=== PATIENT | female | born 2000 | race American Indian/Alaskan Native ===

== ENCOUNTER 2019-08-09 20:54 | Emergency (ER) | payer OTHER ==
--- NOTE | 2019-08-09 21:57 | Emergency Department Report ---
Blank Doc - Documentation Documentation: 19-year-old female that presents with abdominal pain with n/v. This initial assessment/diagnostic orders/clinical plan/treatment(s) is/are subject to change based on patient's health status, clinical progression and re- assessment by fellow clinical providers in the ED. Further treatment and workup at subsequent clinical providers discretion. Patient/guardians urged not to elope from the ED as their condition may be serious if not clinically assessed and managed. Initial orders include: 1- Patient sent to [facility] for further evaluation and treatment 2- labs 3- UA
[2019-08-09 22:23] LABS: Basophils # (Auto) 0.1 K/mm3 (0.0-0.1); Basophils % (Auto) 0.7 % (0.0-1.8); Eosinophils # (Auto) 0.1 K/mm3 (0.0-0.4); Eosinophils % (Auto) 0.8 % (0.0-4.3); Hematocrit 39.5 % (30.3-42.9); Hemoglobin 12.7 gm/dl (10.1-14.3); Lymphocytes % (Auto) 29.6 % (13.4-35.0); Mean Corpuscular HGB Conc 32 % (30-34); Mean Corpuscular Volume 88 fl (79-97); Monocytes # (Auto) 0.6 K/mm3 (0.0-0.8); Monocytes % (Auto) 5.7 % (0.0-7.3); Platelet Count 368 K/mm3 (140-440); Red Blood Count 4.48 M/mm3 (3.65-5.03); Red Cell Distribution Width 12.8 % (13.2-15.2)
[2019-08-09 22:40] LABS: Bacteria,Urine 1+ /HPF (Negative); Bilirubin,Urine NEG (Negative); Blood,Urine LG (Negative); Color,Urine Yellow (Yellow); Protein,Urine <15 mg/dL mg/dL (Negative); Urobilinogen,Urine < 2.0 mg/dL (<2.0)
[2019-08-09 22:41] LABS: Alanine Aminotransferase 16 units/L (7-56); Albumin 4.4 g/dL (3.9-5); BUN/Creatinine Ratio 15; Blood Urea Nitrogen 9 mg/dL (7-17); Hemolysis Index 66
[2019-08-09] MEDS ORDERED: ONDANSETRON 4 MG/2 ML INJ IV ONE (23:59)
[2019-08-09] MEDS ORDERED: FAMOTIDINE 20 MG/2 ML INJ IV ONE (23:59)
[2019-08-09] MEDS ORDERED: KETOROLAC 30 MG/1 ML INJ IV ONE (23:59)
[2019-08-10] MEDS ORDERED: SODIUM CHLORIDE 0.9% 1000 ML 1,000 ML IV ONE
[2019-08-10] MEDS ORDERED: ONDANSETRON 4 MG ODT TAB PO ONE (00:14)
[2019-08-10] MEDS ORDERED: DICYCLOMINE 20 MG TAB PO ONE (00:14)
[2019-08-10] MEDS ORDERED: FAMOTIDINE 20 MG TAB PO ONE (00:14)
[2019-08-10] MEDS ORDERED: BUTALB/ACETAMINOPHEN/CAFFEINE TAB PO ONE (00:14)
--- NOTE | 2019-08-10 00:19 | Emergency Department Report ---
ED N/V/D HPI - General Chief complaint: Abdominal Pain Stated complaint: PRESSURE IN HEAD NAUSEA ABD PAIN Time Seen by Provider: 08/09/19 21:57 Source: patient Mode of arrival: Ambulatory Limitations: No Limitations - History of Present Illness Initial comments: Patient is a nulliparous 19-year-old -[place] female with no past medical history who presents to the ED with complaint of acute onset persistent diffuse abdominal pain, nausea, vomiting and headache for the last 4 days. Patient denies dizziness, syncope, chest pain, shortness of breath, fever, chills, cough, dysuria, diarrhea, sore throat, nasal and sinus congestion, change in vision or vaginal bleeding and vaginal discharge. MD complaint: nausea, vomiting, abdominal pain, other (headache) -: Sudden, days(s) (4) Description of Vomiting: food contents, watery Associated Abdominal Pain: Yes (diffuse) Location: diffuse Radiation: none Severity: moderate Pain Scale: 5 Quality: cramping, aching Consistency: intermittent Improves with: none Worsens with: none Context: possible food poisoning Associated Symptoms: denies other symptoms, headaches, loss of appetite, malaise, nausea/vomiting. denies: myalgias, chest pain, cough, diaphoresis, fever/chills, rash, dysuria, shortness of breath, syncope, weakness, other - Related Data Previous Rx's Medication Instructions Recorded Last Taken Type Butalb/Acetamin/Caff 50-325-40 1 tab PO Q6HR PRN #15 tab 08/10/19 Unknown Rx [Fioricet 50-325-40] Dicyclomine [Bentyl] 20 mg PO Q6H PRN #24 tablet 08/10/19 Unknown Rx Famotidine [Pepcid] 20 mg PO Q12H #30 tablet 08/10/19 Unknown Rx Ondansetron [Zofran Odt] 4 mg PO Q6HR PRN #20 tab.rapdis 08/10/19 Unknown Rx Allergies Allergy/AdvReac Type Severity Reaction Status Date / Time No Known Allergies Allergy Unverified 06/01/19 07:57 ED Review of Systems ROS: Stated complaint: PRESSURE IN HEAD NAUSEA ABD PAIN Other details as noted in HPI Constitutional: denies: chills, fever Eyes: denies: eye pain, eye discharge, vision change ENT: denies: ear pain, throat pain Respiratory: denies: cough, shortness of breath, wheezing Cardiovascular: denies: chest pain, palpitations Endocrine: no symptoms reported Gastrointestinal: abdominal pain, nausea, vomiting. denies: diarrhea Genitourinary: denies: urgency, dysuria, discharge Musculoskeletal: denies: back pain, joint swelling, arthralgia Skin: denies: rash, lesions Neurological: headache. denies: weakness, paresthesias Psychiatric: denies: anxiety, depression Hematological/Lymphatic: denies: easy bleeding, easy bruising ED Past Medical Hx - Past Medical History Previous Medical History?: No - Surgical History Past Surgical History?: No - Social History Smoking Status: Never Smoker Substance Use Type: None, Marijuana - Medications Home Medications: Home Medications Medication Instructions Recorded Confirmed Last Taken Type Butalb/Acetamin/Caff 50-325-40 1 tab PO Q6HR PRN #15 tab 08/10/19 Unknown Rx [Fioricet 50-325-40] Dicyclomine [Bentyl] 20 mg PO Q6H PRN #24 tablet 08/10/19 Unknown Rx Famotidine [Pepcid] 20 mg PO Q12H #30 tablet 08/10/19 Unknown Rx Ondansetron [Zofran Odt] 4 mg PO Q6HR PRN #20 tab.rapdis 08/10/19 Unknown Rx ED Physical Exam - General Limitations: No Limitations General appearance: alert, in no apparent distress - Head Head exam: Present: atraumatic, normocephalic, normal inspection - Eye Eye exam: Present: normal appearance, PERRL, EOMI Pupils: Present: normal accommodation - ENT ENT exam: Present: normal exam, normal orophraynx, mucous membranes moist, TM's normal bilaterally, normal external ear exam - Neck Neck exam: Present: normal inspection, full ROM - Respiratory Respiratory exam: Present: normal lung sounds bilaterally. Absent: respiratory distress, wheezes, rales, chest wall tenderness - Cardiovascular Cardiovascular Exam: Present: regular rate, normal rhythm, normal heart sounds. Absent: systolic murmur, diastolic murmur, rubs, gallop - GI/Abdominal GI/Abdominal exam: Present: soft, normal bowel sounds. Absent: tenderness, gua rding, hyperactive bowel sounds - Extremities Exam Extremities exam: Present: normal inspection, full ROM, normal capillary refill - Back Exam Back exam: Present: normal inspection, full ROM. Absent: tenderness, CVA tende rness (R), CVA tenderness (L), muscle spasm, paraspinal tenderness, vertebral tenderness - Neurological Exam Neurological exam: Present: alert, oriented X3, CN II-XII intact, normal gait, reflexes normal - Psychiatric Psychiatric exam: Present: normal affect, normal mood - Skin Skin exam: Present: warm, dry, intact, normal color. Absent: rash ED Course Vital Signs 08/09/19 21:13 Temperature 97.9 F Pulse Rate 83 Respiratory 12 Rate Blood Pressure 127/82 O2 Sat by Pulse 100 Oximetry ED Medical Decision Making - Lab Data Result diagrams: 08/09/19 22:00 08/09/19 22:00 - Medical Decision Making This is a nulliparous 19-year-old -[place] female who presented to the ED with acute onset persistent nausea, vomiting, diffuse abdominal pain and headache for 4 days. In the ED, patient is alert and oriented x3 and is not in any distress with normal vital signs. Lab test results were reviewed and are all nonactionable. Patient was treated for nausea and vomiting and pain, and on reevaluation, patient felt better and and requested to be discharged home on medications. Patient was discharged home on medications and advised to follow- up with her primary care physician in 5 to 7 days for reevaluation or return to the ED immediately if symptoms get worse. - Differential Diagnosis Viral gastroenteritis; Dehydration; GERD Critical care attestation.: If time is entered above; I have spent that time in minutes in the direct care of this critically ill patient, excluding procedure time. ED Disposition Clinical Impression: Viral gastroenteritis, Nausea and vomiting in adult Tension type headache Qualifiers: Headache chronicity pattern: acute headache Intractability: not intractable Qualified Code(s): G44.209 - Tension-type headache, unspecified, not intractable Disposition: DC-01 TO HOME OR SELFCARE Is pt being admited?: No Does the pt Need Aspirin: No Condition: Stable Instructions: Abdominal Pain (ED), Acute Nausea and Vomiting (ED), Gastroenteritis (ED) Additional Instructions: Your lab test results are unremarkable and your symptoms are likely due to a viral syndrome. Therefore maintain a clear liquid diet for 12 to 24 hours, take medication as advised drink plenty of fluids. Follow-up with your primary care physician in 7 to 10 days for reevaluation or return to the ED immediately if symptoms get worse. Prescriptions: Dicyclomine [Bentyl] 20 mg PO Q6H PRN #24 tablet PRN Reason: Abdominal pain Butalb/Acetamin/Caff 50-325-40 [Fioricet 50-325-40] 1 tab PO Q6HR PRN #15 tab PRN Reason: Headache Famotidine [Pepcid] 20 mg PO Q12H #30 tablet Ondansetron [Zofran Odt] 4 mg PO Q6HR PRN #20 tab.rapdis PRN Reason: Nausea Referrals: MIKE FIERRO [Other] - 3-5 Days Forms: Work/School Release Form(ED) Time of Disposition: 00:16 Print Language: MAURITIAN
[2019-08-10 00:35] VITALS: BP 120/74
== END 2019-08-10 00:37 | disposition home or self-care (01) ==
LOC: ED 20:54
DX: A08.4 Viral intestinal infection, unspecified (principal); G44.209 Tension-type headache, unspecified, not intractable; F12.10 Cannabis abuse, uncomplicated; Z79.899 Other long term (current) drug therapy
CPT/HCPCS: 36415; 80053; 81001; 83690; 84703; 85025; Q0162

== ENCOUNTER 2020-02-04 18:51 | Outpatient (CLI) | payer OTHER ==
[2020-02-04 19:23] VITALS: BP 115/71
[2020-02-04] MEDS ORDERED: LACTATED RINGERS 1,000 ML ONE (19:37)
[2020-02-04 19:45] LABS: Bacteria,Urine 1+ /HPF (Negative); Bilirubin,Urine NEG (Negative); Blood,Urine NEG (Negative); Color,Urine Yellow (Yellow); Mucus,Urine FEW /HPF; Protein,Urine <15 mg/dL mg/dL (Negative); Urobilinogen,Urine < 2.0 mg/dL (<2.0)
[2020-02-04] MEDS ORDERED: LACTATED RINGERS 1,000 ML IV ONE ×2 (19:46→22:13)
[2020-02-04] MEDS ORDERED: ACETAMINOPHEN 325 MG TAB PO ONE (20:00)
[2020-02-04] MEDS ORDERED: TERBUTALINE 1 MG/1 ML INJ ONE (21:33)
--- NOTE | 2020-02-04 22:12 | Ultrasound Report ---
ULTRASOUND OBSTETRIC LIMITED INDICATION / CLINICAL INFORMATION: r/o abruption. Clinical Gestational Age (GA): 26.0 weeks.days COMPARISON: None available. FINDINGS: HEART RATE (beats per minute): 149 AMNIOTIC FLUID INDEX (cm) = 16.1 (normal = 7-24 cm) PRESENTATION: Cephalic. PLACENTA: Posterior. Grade 0. No evidence of abruption. ADDITIONAL FINDINGS: None. IMPRESSION: 1. Single living intrauterine gestation. 2. No evidence of placental abruption. Signer Name: Jose Gonzales MD Signed: 02/04/2020 10:08 PM Workstation Name: [id number]
[2020-02-04] MEDS ORDERED: TERBUTALINE 1 MG/1 ML INJ SUB-Q ONE (22:13)
== END 2020-02-04 23:20 | disposition home or self-care (01) ==
LOC: TRG 18:51 → APU 18:52 → TRG 23:20
PROVIDERS: ATTEND Obstetrics & Gynecology
DX: O26.892 Other specified pregnancy related conditions, second trimester (principal); R10.9 Unspecified abdominal pain; O47.02 False labor before 37 completed weeks of gestation, second trimester; Z3A.26 26 weeks gestation of pregnancy
CPT/HCPCS: 59025; 76815; 81001; 86850; 86900; 86901; 96360; 96361; 96372; J3105; J7120